=== PATIENT | male | born 1960 | race African-American/Black ===

== ENCOUNTER 2021-07-21 13:57 | Inpatient (IN) | payer OTHER ==
[2021-07-21] MEDS ORDERED: MAG HYDROX/AL HYDROX/SIMETH 30 ML UNIT-DOSE CUP PO PRN (17:51)
[2021-07-21] MEDS ORDERED: MENTHOL/PHENOL 1 EACH UD MM PRN (17:51)
[2021-07-21] MEDS ORDERED: NICOTINE POLACRILEX 2 MG GUM BUC PRN (17:51)
[2021-07-21] MEDS ORDERED: BISMUTH SUBSALICYLATE 524 MG/30 ML PO PRN (17:51)
[2021-07-21] MEDS ORDERED: ONDANSETRON *ODT* 4 MG TABLET SL PRN (17:51)
[2021-07-21] MEDS ORDERED: MAGNESIUM HYDROX 2400MG/30ML ORAL SUSPENSION 30 ML CUP PO PRN (17:51)
[2021-07-21] MEDS ORDERED: MAGNESIUM CITRATE 300 ML BOTTLE PO PRN (17:51)
[2021-07-21] MEDS ORDERED: IBUPROFEN 400 MG TABLET (FP) PO PRN (17:51)
[2021-07-21] MEDS ORDERED: ACETAMINOPHEN 325 MG TABLET (FP) PO PRN ×2 (17:51)
[2021-07-21] MEDS ORDERED: diazePAM 5 MG TABLET PO PRN (17:52)
[2021-07-21 19:35] VITALS: BMI 25.7
[2021-07-22] MEDS: BICTEGRAV/EMTRICIT/TENOFOV (BIKTARVY) 50-200-25 MG TABLET PO SCH ×3 (00:10→22:44)
[2021-07-22] MEDS: THIAMINE HCL 100 MG TABLET (FP) PO SCH ×2 (00:10→22:44)
[2021-07-22] MEDS: MELATONIN 5 MG TABLETS PO SCH ×2 (00:10→22:44)
[2021-07-22] MEDS: diazePAM 5 MG TABLET PO SCH ×5 (00:11→22:47)
[2021-07-22] MEDS: GABAPENTIN 300 MG CAPSULE PO SCH ×3 (05:27→22:44)
[2021-07-22] MEDS: PRENATAL VITAMINS W/ FOLIC ACID TABLET (FP) PO SCH (10:27)
[2021-07-22 11:45] LABS: HEMATOCRIT 38.8 % (35.4-49); HEMOGLOBIN 12.5 GM/dL (11.7-16.9); MCH 26.7 pg (25.7-33.7); MCHC 32.3 g/dl (32.0-35.9); MEAN CELL VOLUME 82.8 fl (80-96); MEAN PLT VOLUME 9.5 fl (7.5-11.1); PLATELET COUNT 236 10^3/uL (134-434); RBC 4.69 M/mm3 (4.00-5.60); RDW 13.8 % (11.9-15.9); WHITE BLOOD COUNT 7.5 K/mm3 (4.0-10.0)
[2021-07-22 12:07] LABS: ALBUMIN 3.2 g/dl (3.4-5.0); BLOOD UREA NITROGEN 15.9 mg/dL (7-18); CALCIUM 9.2 mg/dL (8.5-10.1)
[2021-07-22 12:10] LABS: CREATININE 0.9 mg/dL (0.55-1.3)
[2021-07-22 12:13] LABS: TOT PROT 6.8 g/dl (6.4-8.2)
[2021-07-22 12:14] LABS: BILIRUBIN,TOTAL 0.3 mg/dL (0.2-1)
[2021-07-22] MEDS: guaiFENesin 200 MG/10 ML 10 ML UNIT-DOSE CUPS PO PRN ×2 (13:06→19:25)
[2021-07-22] MEDS: hydrOXYzine PAMOATE 25 MG CAPSULE (FP) PO PRN ×2 (17:24→22:44)
[2021-07-22] MEDS: METHOCARBAMOL 500 MG TABLET PO PRN (22:44)
[2021-07-23] MEDS: GABAPENTIN 300 MG CAPSULE PO SCH ×3 (05:38→22:33)
[2021-07-23] MEDS: hydrOXYzine PAMOATE 25 MG CAPSULE (FP) PO PRN (05:38)
[2021-07-23] MEDS: diazePAM 5 MG TABLET PO SCH ×2 (05:39→18:05)
[2021-07-23] MEDS: METHOCARBAMOL 500 MG TABLET PO PRN (10:17)
[2021-07-23] MEDS: PRENATAL VITAMINS W/ FOLIC ACID TABLET (FP) PO SCH (10:17)
[2021-07-23] MEDS: BICTEGRAV/EMTRICIT/TENOFOV (BIKTARVY) 50-200-25 MG TABLET PO SCH (10:19)
[2021-07-23] MEDS: guaiFENesin 200 MG/10 ML 10 ML UNIT-DOSE CUPS PO PRN (18:07)
[2021-07-23] MEDS: THIAMINE HCL 100 MG TABLET (FP) PO SCH (22:33)
[2021-07-23] MEDS: MELATONIN 5 MG TABLETS PO SCH (22:34)
[2021-07-23] MEDS ORDERED: BICTEGRAV/EMTRICIT/TENOFOV (BIKTARVY) 50-200-25 MG TABLET PO ONE (22:45)
[2021-07-24] MEDS: GABAPENTIN 300 MG CAPSULE PO SCH (05:30)
[2021-07-24] MEDS ORDERED: diazePAM 5 MG TABLET PO ONE (06:00)
[2021-07-24 09:14] VITALS: BP 133/80; PULSE 99; TEMP 97.8
== END 2021-07-24 10:01 | disposition home or self-care (01) | DRG 774 ==
LOC: YASAS 13:57 → Y6N 23:22
PROVIDERS: ADMIT Allergy & Immunology; ATTEND Allergy & Immunology
PROC: HZ2ZZZZ Detoxification Services for Substance Abuse Treatment (ICD-10-PCS; principal; 2021-07-21)
DX: F10.230 Alcohol dependence with withdrawal, uncomplicated (principal); F14.20 Cocaine dependence, uncomplicated; F12.20 Cannabis dependence, uncomplicated; F17.213 Nicotine dependence, cigarettes, with withdrawal; Z21 Asymptomatic human immunodeficiency virus [HIV] infection status; G62.9 Polyneuropathy, unspecified; Z86.11 Personal history of tuberculosis; Z86.19 Personal history of other infectious and parasitic diseases; Z88.0 Allergy status to penicillin
CPT/HCPCS: 36415; 71046-TC-FY; 80053; 85027; 86780; C9803; U0003; U0005

== ENCOUNTER 2021-07-26 21:02 | Inpatient (IN) | payer OTHER ==
[2021-07-26 22:49] VITALS: BMI 24.0
[2021-07-26] MEDS ORDERED: guaiFENesin 200 MG/10 ML 10 ML UNIT-DOSE CUPS PO PRN (22:58)
[2021-07-26] MEDS ORDERED: MENTHOL/PHENOL 1 EACH UD MM PRN (22:58)
[2021-07-26] MEDS ORDERED: MAGNESIUM CITRATE 300 ML BOTTLE PO PRN (22:58)
[2021-07-26] MEDS ORDERED: NICOTINE 10 MG CARTRIDGE (INHALER) IH PRN (22:58)
[2021-07-26] MEDS ORDERED: LOPERAMIDE HCL 2 MG CAPSULE PO PRN (22:58)
[2021-07-26] MEDS ORDERED: MAGNESIUM HYDROX 2400MG/30ML ORAL SUSPENSION 30 ML CUP PO PRN (22:58)
[2021-07-26] MEDS ORDERED: P-EPHED 60MG/TRIPROLIDI 2.5MG TABLET PO PRN (22:58)
[2021-07-26] MEDS ORDERED: MAG HYDROX/AL HYDROX/SIMETH 30 ML UNIT-DOSE CUP PO PRN (22:58)
[2021-07-27] MEDS: GABAPENTIN 300 MG CAPSULE PO SCH ×4 (02:15→21:22)
[2021-07-27] MEDS: MELATONIN 5 MG TABLETS PO SCH ×2 (02:19→21:22)
[2021-07-27] MEDS ORDERED: BICTEGRAV/EMTRICIT/TENOFOV (BIKTARVY) 50-200-25 MG TABLET PO SCH (10:00)
[2021-07-27] MEDS: PRENATAL VITAMINS W/ FOLIC ACID TABLET (FP) PO SCH (10:10)
[2021-07-27] MEDS: NICOTINE 7 MG/24 HOURS TOPICAL PATCH TD SCH (10:11)
[2021-07-27] MEDS: ACETAMINOPHEN 325 MG TABLET (FP) PO PRN (13:34)
[2021-07-27] MEDS: THIAMINE HCL 100 MG TABLET (FP) PO SCH (21:22)
[2021-07-28] MEDS: GABAPENTIN 300 MG CAPSULE PO SCH ×3 (06:28→21:22)
[2021-07-28] MEDS: ACETAMINOPHEN 325 MG TABLET (FP) PO PRN ×3 (06:29→21:22)
[2021-07-28] MEDS: NYSTATIN POWDER 100,000 UNITS/GM - 15 GM TOPICAL POWDER TP SCH ×2 (10:07→21:23)
[2021-07-28] MEDS: NYSTATIN 100000 UNIT/GM TOPICAL OINTMENT 15 GM TUBE TP SCH ×2 (10:07→21:23)
[2021-07-28] MEDS: PRENATAL VITAMINS W/ FOLIC ACID TABLET (FP) PO SCH (10:07)
[2021-07-28] MEDS: NICOTINE 7 MG/24 HOURS TOPICAL PATCH TD SCH (10:08)
[2021-07-28] MEDS: BICTEGRAV/EMTRICIT/TENOFOV (BIKTARVY) 50-200-25 MG TABLET PO SCH (19:51)
[2021-07-28] MEDS: MELATONIN 5 MG TABLETS PO SCH (21:21)
[2021-07-28] MEDS: THIAMINE HCL 100 MG TABLET (FP) PO SCH (21:21)
[2021-07-29] MEDS: GABAPENTIN 300 MG CAPSULE PO SCH ×3 (06:44→21:33)
[2021-07-29] MEDS: NYSTATIN POWDER 100,000 UNITS/GM - 15 GM TOPICAL POWDER TP SCH ×2 (09:57→21:34)
[2021-07-29] MEDS: NICOTINE 7 MG/24 HOURS TOPICAL PATCH TD SCH (09:57)
[2021-07-29] MEDS: NYSTATIN 100000 UNIT/GM TOPICAL OINTMENT 15 GM TUBE TP SCH ×2 (09:57→21:34)
[2021-07-29] MEDS: PRENATAL VITAMINS W/ FOLIC ACID TABLET (FP) PO SCH (09:57)
[2021-07-29] MEDS: BICTEGRAV/EMTRICIT/TENOFOV (BIKTARVY) 50-200-25 MG TABLET PO SCH (20:10)
[2021-07-29] MEDS: MELATONIN 5 MG TABLETS PO SCH (21:34)
[2021-07-29] MEDS: THIAMINE HCL 100 MG TABLET (FP) PO SCH (21:34)
[2021-07-30] MEDS: GABAPENTIN 300 MG CAPSULE PO SCH ×3 (06:21→21:17)
[2021-07-30 10:07] LABS: SARS-CoV-2 NAA Not Detected (Not Detected)
[2021-07-30] MEDS: NYSTATIN 100000 UNIT/GM TOPICAL OINTMENT 15 GM TUBE TP SCH ×2 (11:02→21:17)
[2021-07-30] MEDS: NYSTATIN POWDER 100,000 UNITS/GM - 15 GM TOPICAL POWDER TP SCH ×2 (11:02→21:18)
[2021-07-30] MEDS: NICOTINE 7 MG/24 HOURS TOPICAL PATCH TD SCH (11:02)
[2021-07-30] MEDS: PRENATAL VITAMINS W/ FOLIC ACID TABLET (FP) PO SCH (11:02)
[2021-07-30] MEDS: ACETAMINOPHEN 325 MG TABLET (FP) PO PRN (14:38)
[2021-07-30] MEDS: BICTEGRAV/EMTRICIT/TENOFOV (BIKTARVY) 50-200-25 MG TABLET PO SCH (19:43)
[2021-07-30] MEDS: THIAMINE HCL 100 MG TABLET (FP) PO SCH (21:17)
[2021-07-30] MEDS: MELATONIN 5 MG TABLETS PO SCH (21:17)
[2021-07-31] MEDS: GABAPENTIN 300 MG CAPSULE PO SCH ×3 (06:30→21:57)
[2021-07-31] MEDS: NICOTINE 7 MG/24 HOURS TOPICAL PATCH TD SCH (11:16)
[2021-07-31] MEDS: NYSTATIN POWDER 100,000 UNITS/GM - 15 GM TOPICAL POWDER TP SCH ×2 (11:16→21:58)
[2021-07-31] MEDS: PRENATAL VITAMINS W/ FOLIC ACID TABLET (FP) PO SCH (11:16)
[2021-07-31] MEDS: NYSTATIN 100000 UNIT/GM TOPICAL OINTMENT 15 GM TUBE TP SCH ×2 (11:16→21:58)
[2021-07-31] MEDS: MELATONIN 5 MG TABLETS PO SCH (21:57)
[2021-07-31] MEDS: THIAMINE HCL 100 MG TABLET (FP) PO SCH (21:57)
[2021-07-31] MEDS: BICTEGRAV/EMTRICIT/TENOFOV (BIKTARVY) 50-200-25 MG TABLET PO SCH (21:58)
[2021-08-01] MEDS: GABAPENTIN 300 MG CAPSULE PO SCH ×3 (06:13→21:24)
[2021-08-01] MEDS: NYSTATIN POWDER 100,000 UNITS/GM - 15 GM TOPICAL POWDER TP SCH ×2 (09:55→21:24)
[2021-08-01] MEDS: PRENATAL VITAMINS W/ FOLIC ACID TABLET (FP) PO SCH (09:55)
[2021-08-01] MEDS: NYSTATIN 100000 UNIT/GM TOPICAL OINTMENT 15 GM TUBE TP SCH ×2 (09:55→21:24)
[2021-08-01] MEDS: NICOTINE 7 MG/24 HOURS TOPICAL PATCH TD SCH (09:55)
[2021-08-01] MEDS: BICTEGRAV/EMTRICIT/TENOFOV (BIKTARVY) 50-200-25 MG TABLET PO SCH (19:58)
[2021-08-01] MEDS: THIAMINE HCL 100 MG TABLET (FP) PO SCH (21:24)
[2021-08-01] MEDS: MELATONIN 5 MG TABLETS PO SCH (21:24)
[2021-08-02] MEDS: GABAPENTIN 300 MG CAPSULE PO SCH (06:32)
[2021-08-02] MEDS: NYSTATIN 100000 UNIT/GM TOPICAL OINTMENT 15 GM TUBE TP SCH ×2 (10:07→21:29)
[2021-08-02] MEDS: NYSTATIN POWDER 100,000 UNITS/GM - 15 GM TOPICAL POWDER TP SCH ×2 (10:07→21:29)
[2021-08-02] MEDS: NICOTINE 7 MG/24 HOURS TOPICAL PATCH TD SCH (10:07)
[2021-08-02] MEDS: PRENATAL VITAMINS W/ FOLIC ACID TABLET (FP) PO SCH (10:07)
[2021-08-02] MEDS: COLLOIDAL OATMEAL 1 BAR EACH TP PRN (11:51)
[2021-08-02] MEDS: GABAPENTIN 400 MG CAPSULE PO SCH ×2 (14:57→21:15)
[2021-08-02] MEDS: BICTEGRAV/EMTRICIT/TENOFOV (BIKTARVY) 50-200-25 MG TABLET PO SCH (19:42)
[2021-08-02] MEDS: THIAMINE HCL 100 MG TABLET (FP) PO SCH (21:15)
[2021-08-02] MEDS: MELATONIN 5 MG TABLETS PO SCH (21:15)
[2021-08-03] MEDS: GABAPENTIN 400 MG CAPSULE PO SCH ×3 (07:15→21:33)
[2021-08-03] MEDS: NICOTINE 7 MG/24 HOURS TOPICAL PATCH TD SCH (10:05)
[2021-08-03] MEDS: PRENATAL VITAMINS W/ FOLIC ACID TABLET (FP) PO SCH (10:05)
[2021-08-03] MEDS: NYSTATIN 100000 UNIT/GM TOPICAL OINTMENT 15 GM TUBE TP SCH ×2 (10:05→21:33)
[2021-08-03] MEDS: NYSTATIN POWDER 100,000 UNITS/GM - 15 GM TOPICAL POWDER TP SCH ×2 (10:05→21:33)
[2021-08-03] MEDS: hydrOXYzine PAMOATE 25 MG CAPSULE (FP) PO PRN (10:06)
[2021-08-03] MEDS: BICTEGRAV/EMTRICIT/TENOFOV (BIKTARVY) 50-200-25 MG TABLET PO SCH (20:09)
[2021-08-03] MEDS: MELATONIN 5 MG TABLETS PO SCH (21:33)
[2021-08-03] MEDS: THIAMINE HCL 100 MG TABLET (FP) PO SCH (21:33)
[2021-08-04] MEDS: GABAPENTIN 400 MG CAPSULE PO SCH ×3 (06:23→21:35)
[2021-08-04] MEDS: NICOTINE 7 MG/24 HOURS TOPICAL PATCH TD SCH (10:11)
[2021-08-04] MEDS: PRENATAL VITAMINS W/ FOLIC ACID TABLET (FP) PO SCH (10:11)
[2021-08-04] MEDS: NYSTATIN 100000 UNIT/GM TOPICAL OINTMENT 15 GM TUBE TP SCH ×2 (10:11→21:35)
[2021-08-04] MEDS: NYSTATIN POWDER 100,000 UNITS/GM - 15 GM TOPICAL POWDER TP SCH ×2 (10:11→21:36)
[2021-08-04] MEDS: COLLOIDAL OATMEAL 1 BAR EACH TP PRN (10:13)
[2021-08-04] MEDS: BICTEGRAV/EMTRICIT/TENOFOV (BIKTARVY) 50-200-25 MG TABLET PO SCH (20:21)
[2021-08-04] MEDS: hydrOXYzine PAMOATE 25 MG CAPSULE (FP) PO PRN (21:35)
[2021-08-04] MEDS: THIAMINE HCL 100 MG TABLET (FP) PO SCH (21:35)
[2021-08-04] MEDS: MELATONIN 5 MG TABLETS PO SCH (21:36)
[2021-08-05] MEDS: GABAPENTIN 400 MG CAPSULE PO SCH ×3 (06:17→21:38)
[2021-08-05] MEDS: PRENATAL VITAMINS W/ FOLIC ACID TABLET (FP) PO SCH (10:11)
[2021-08-05] MEDS: ACETAMINOPHEN 325 MG TABLET (FP) PO PRN (10:11)
[2021-08-05] MEDS: NYSTATIN POWDER 100,000 UNITS/GM - 15 GM TOPICAL POWDER TP SCH ×2 (10:13→21:39)
[2021-08-05] MEDS: NICOTINE 7 MG/24 HOURS TOPICAL PATCH TD SCH (10:13)
[2021-08-05] MEDS: NYSTATIN 100000 UNIT/GM TOPICAL OINTMENT 15 GM TUBE TP SCH ×2 (11:08→21:39)
[2021-08-05] MEDS: IBUPROFEN 400 MG TABLET (FP) PO PRN (18:40)
[2021-08-05] MEDS: BICTEGRAV/EMTRICIT/TENOFOV (BIKTARVY) 50-200-25 MG TABLET PO SCH (20:02)
[2021-08-05] MEDS: MELATONIN 5 MG TABLETS PO SCH (21:36)
[2021-08-05] MEDS: THIAMINE HCL 100 MG TABLET (FP) PO SCH (21:38)
[2021-08-06] MEDS: GABAPENTIN 400 MG CAPSULE PO SCH ×3 (06:17→21:48)
[2021-08-06] MEDS: NICOTINE 7 MG/24 HOURS TOPICAL PATCH TD SCH (09:48)
[2021-08-06] MEDS: PRENATAL VITAMINS W/ FOLIC ACID TABLET (FP) PO SCH (09:48)
[2021-08-06] MEDS: IBUPROFEN 400 MG TABLET (FP) PO PRN (09:51)
[2021-08-06] MEDS: NYSTATIN 100000 UNIT/GM TOPICAL OINTMENT 15 GM TUBE TP SCH ×2 (13:36→21:49)
[2021-08-06] MEDS: NYSTATIN POWDER 100,000 UNITS/GM - 15 GM TOPICAL POWDER TP SCH ×2 (13:37→21:49)
[2021-08-06] MEDS: BICTEGRAV/EMTRICIT/TENOFOV (BIKTARVY) 50-200-25 MG TABLET PO SCH (20:14)
[2021-08-06] MEDS: THIAMINE HCL 100 MG TABLET (FP) PO SCH (21:48)
[2021-08-06] MEDS: MELATONIN 5 MG TABLETS PO SCH (21:48)
[2021-08-07] MEDS: GABAPENTIN 400 MG CAPSULE PO SCH ×3 (06:07→21:26)
[2021-08-07] MEDS: PRENATAL VITAMINS W/ FOLIC ACID TABLET (FP) PO SCH (10:03)
[2021-08-07] MEDS: NYSTATIN POWDER 100,000 UNITS/GM - 15 GM TOPICAL POWDER TP SCH ×2 (10:04→21:27)
[2021-08-07] MEDS: NICOTINE 7 MG/24 HOURS TOPICAL PATCH TD SCH (10:04)
[2021-08-07] MEDS: NYSTATIN 100000 UNIT/GM TOPICAL OINTMENT 15 GM TUBE TP SCH ×2 (10:04→21:27)
[2021-08-07] MEDS: IBUPROFEN 400 MG TABLET (FP) PO PRN (10:05)
[2021-08-07] MEDS ORDERED: MASKS NR ONE (17:31)
[2021-08-07] MEDS: BICTEGRAV/EMTRICIT/TENOFOV (BIKTARVY) 50-200-25 MG TABLET PO SCH (20:36)
[2021-08-07] MEDS: MELATONIN 5 MG TABLETS PO SCH (21:26)
[2021-08-07] MEDS: THIAMINE HCL 100 MG TABLET (FP) PO SCH (21:26)
[2021-08-08] MEDS: GABAPENTIN 400 MG CAPSULE PO SCH ×3 (06:04→21:35)
[2021-08-08] MEDS: PRENATAL VITAMINS W/ FOLIC ACID TABLET (FP) PO SCH (10:08)
[2021-08-08] MEDS: NICOTINE 7 MG/24 HOURS TOPICAL PATCH TD SCH (10:08)
[2021-08-08] MEDS: NYSTATIN 100000 UNIT/GM TOPICAL OINTMENT 15 GM TUBE TP SCH ×2 (10:09→21:35)
[2021-08-08] MEDS: NYSTATIN POWDER 100,000 UNITS/GM - 15 GM TOPICAL POWDER TP SCH ×2 (10:09→21:35)
[2021-08-08] MEDS: IBUPROFEN 400 MG TABLET (FP) PO PRN (17:48)
[2021-08-08] MEDS: BACITRACIN 0.9 GM PACKET TP SCH (17:50)
[2021-08-08] MEDS: BICTEGRAV/EMTRICIT/TENOFOV (BIKTARVY) 50-200-25 MG TABLET PO SCH (20:05)
[2021-08-08] MEDS: METHOCARBAMOL 500 MG TABLET PO PRN (21:34)
[2021-08-08] MEDS: MELATONIN 5 MG TABLETS PO SCH (21:35)
[2021-08-08] MEDS: hydrOXYzine PAMOATE 25 MG CAPSULE (FP) PO PRN (21:35)
[2021-08-08] MEDS: THIAMINE HCL 100 MG TABLET (FP) PO SCH (21:35)
[2021-08-09] MEDS: GABAPENTIN 400 MG CAPSULE PO SCH ×3 (06:22→21:40)
[2021-08-09] MEDS: PRENATAL VITAMINS W/ FOLIC ACID TABLET (FP) PO SCH (09:54)
[2021-08-09] MEDS: NYSTATIN POWDER 100,000 UNITS/GM - 15 GM TOPICAL POWDER TP SCH ×2 (09:55→22:03)
[2021-08-09] MEDS: NICOTINE 7 MG/24 HOURS TOPICAL PATCH TD SCH (09:55)
[2021-08-09] MEDS: METHOCARBAMOL 500 MG TABLET PO PRN ×2 (09:56→21:42)
[2021-08-09] MEDS: BACITRACIN 0.9 GM PACKET TP SCH (09:56)
[2021-08-09] MEDS: NYSTATIN 100000 UNIT/GM TOPICAL OINTMENT 15 GM TUBE TP SCH ×2 (10:35→22:03)
[2021-08-09] MEDS: BICTEGRAV/EMTRICIT/TENOFOV (BIKTARVY) 50-200-25 MG TABLET PO SCH (20:31)
[2021-08-09] MEDS: MELATONIN 5 MG TABLETS PO SCH (21:40)
[2021-08-09] MEDS: THIAMINE HCL 100 MG TABLET (FP) PO SCH (21:40)
[2021-08-09] MEDS: IBUPROFEN 400 MG TABLET (FP) PO PRN (21:41)
[2021-08-10] MEDS: GABAPENTIN 400 MG CAPSULE PO SCH ×3 (06:12→21:36)
[2021-08-10] MEDS: NYSTATIN 100000 UNIT/GM TOPICAL OINTMENT 15 GM TUBE TP SCH ×2 (09:45→21:48)
[2021-08-10] MEDS: NICOTINE 7 MG/24 HOURS TOPICAL PATCH TD SCH (09:46)
[2021-08-10] MEDS: NYSTATIN POWDER 100,000 UNITS/GM - 15 GM TOPICAL POWDER TP SCH ×2 (09:46→21:48)
[2021-08-10] MEDS: BACITRACIN 0.9 GM PACKET TP SCH (09:47)
[2021-08-10] MEDS: PRENATAL VITAMINS W/ FOLIC ACID TABLET (FP) PO SCH (09:47)
[2021-08-10] MEDS: BICTEGRAV/EMTRICIT/TENOFOV (BIKTARVY) 50-200-25 MG TABLET PO SCH (20:11)
[2021-08-10] MEDS: IBUPROFEN 400 MG TABLET (FP) PO PRN (21:36)
[2021-08-10] MEDS: METHOCARBAMOL 500 MG TABLET PO PRN (21:36)
[2021-08-10] MEDS: THIAMINE HCL 100 MG TABLET (FP) PO SCH (21:36)
[2021-08-10] MEDS: MELATONIN 5 MG TABLETS PO SCH (21:36)
[2021-08-11] MEDS: GABAPENTIN 400 MG CAPSULE PO SCH ×3 (06:02→21:32)
[2021-08-11] MEDS: NYSTATIN 100000 UNIT/GM TOPICAL OINTMENT 15 GM TUBE TP SCH ×2 (10:09→21:35)
[2021-08-11] MEDS: PRENATAL VITAMINS W/ FOLIC ACID TABLET (FP) PO SCH (10:09)
[2021-08-11] MEDS: NICOTINE 7 MG/24 HOURS TOPICAL PATCH TD SCH (10:09)
[2021-08-11] MEDS: BACITRACIN 0.9 GM PACKET TP SCH (10:09)
[2021-08-11] MEDS: NYSTATIN POWDER 100,000 UNITS/GM - 15 GM TOPICAL POWDER TP SCH ×2 (10:10→21:36)
[2021-08-11] MEDS: IBUPROFEN 400 MG TABLET (FP) PO PRN ×2 (10:12→21:32)
[2021-08-11] MEDS: BICTEGRAV/EMTRICIT/TENOFOV (BIKTARVY) 50-200-25 MG TABLET PO SCH (20:17)
[2021-08-11] MEDS: THIAMINE HCL 100 MG TABLET (FP) PO SCH (21:32)
[2021-08-11] MEDS: METHOCARBAMOL 500 MG TABLET PO PRN (21:32)
[2021-08-11] MEDS: MELATONIN 5 MG TABLETS PO SCH (21:35)
[2021-08-12] MEDS: GABAPENTIN 400 MG CAPSULE PO SCH ×3 (06:05→21:42)
[2021-08-12] MEDS: IBUPROFEN 400 MG TABLET (FP) PO PRN (06:09)
[2021-08-12] MEDS: PRENATAL VITAMINS W/ FOLIC ACID TABLET (FP) PO SCH (09:43)
[2021-08-12] MEDS: NYSTATIN POWDER 100,000 UNITS/GM - 15 GM TOPICAL POWDER TP SCH ×2 (09:43→22:42)
[2021-08-12] MEDS: BACITRACIN 0.9 GM PACKET TP SCH (09:45)
[2021-08-12] MEDS: NYSTATIN 100000 UNIT/GM TOPICAL OINTMENT 15 GM TUBE TP SCH ×2 (09:45→22:42)
[2021-08-12] MEDS: NICOTINE 7 MG/24 HOURS TOPICAL PATCH TD SCH (09:45)
[2021-08-12] MEDS ORDERED: PT OWN MED DRAWER 7, Y5N ONE (14:37)
[2021-08-12] MEDS: BICTEGRAV/EMTRICIT/TENOFOV (BIKTARVY) 50-200-25 MG TABLET PO SCH (20:09)
[2021-08-12] MEDS: METHOCARBAMOL 500 MG TABLET PO PRN (21:42)
[2021-08-12] MEDS: THIAMINE HCL 100 MG TABLET (FP) PO SCH (21:42)
[2021-08-12] MEDS: MELATONIN 5 MG TABLETS PO SCH (21:43)
[2021-08-13] MEDS: GABAPENTIN 400 MG CAPSULE PO SCH ×3 (06:14→21:45)
[2021-08-13] MEDS: PRENATAL VITAMINS W/ FOLIC ACID TABLET (FP) PO SCH (10:05)
[2021-08-13] MEDS: NYSTATIN 100000 UNIT/GM TOPICAL OINTMENT 15 GM TUBE TP SCH ×2 (10:05→21:51)
[2021-08-13] MEDS: BACITRACIN 0.9 GM PACKET TP SCH (10:05)
[2021-08-13] MEDS: NYSTATIN POWDER 100,000 UNITS/GM - 15 GM TOPICAL POWDER TP SCH ×2 (10:06→21:51)
[2021-08-13] MEDS: NICOTINE 7 MG/24 HOURS TOPICAL PATCH TD SCH (10:06)
[2021-08-13] MEDS: BICTEGRAV/EMTRICIT/TENOFOV (BIKTARVY) 50-200-25 MG TABLET PO SCH (20:01)
[2021-08-13] MEDS: MELATONIN 5 MG TABLETS PO SCH (21:45)
[2021-08-13] MEDS: METHOCARBAMOL 500 MG TABLET PO PRN (21:45)
[2021-08-13] MEDS: THIAMINE HCL 100 MG TABLET (FP) PO SCH (21:45)
[2021-08-13] MEDS: IBUPROFEN 400 MG TABLET (FP) PO PRN (21:46)
[2021-08-14] MEDS: GABAPENTIN 400 MG CAPSULE PO SCH ×3 (06:33→21:11)
[2021-08-14] MEDS: PRENATAL VITAMINS W/ FOLIC ACID TABLET (FP) PO SCH (10:03)
[2021-08-14] MEDS: NICOTINE 7 MG/24 HOURS TOPICAL PATCH TD SCH (10:04)
[2021-08-14] MEDS: NYSTATIN POWDER 100,000 UNITS/GM - 15 GM TOPICAL POWDER TP SCH ×2 (10:04→21:13)
[2021-08-14] MEDS: NYSTATIN 100000 UNIT/GM TOPICAL OINTMENT 15 GM TUBE TP SCH ×2 (10:04→21:13)
[2021-08-14] MEDS: COLLOIDAL OATMEAL 1 BAR EACH TP PRN (10:05)
[2021-08-14] MEDS ORDERED: PT OWN MED DRAWER 7, Y5N ONE (20:13)
[2021-08-14] MEDS: BICTEGRAV/EMTRICIT/TENOFOV (BIKTARVY) 50-200-25 MG TABLET PO SCH (20:18)
[2021-08-14] MEDS: THIAMINE HCL 100 MG TABLET (FP) PO SCH (21:11)
[2021-08-14] MEDS: METHOCARBAMOL 500 MG TABLET PO PRN (21:11)
[2021-08-14] MEDS: IBUPROFEN 400 MG TABLET (FP) PO PRN (21:11)
[2021-08-14] MEDS: MELATONIN 5 MG TABLETS PO SCH (21:12)
[2021-08-15] MEDS: GABAPENTIN 400 MG CAPSULE PO SCH ×3 (06:49→21:50)
[2021-08-15] MEDS ORDERED: PT OWN MED DRAWER 7, Y5N ONE (08:59)
[2021-08-15] MEDS: NYSTATIN POWDER 100,000 UNITS/GM - 15 GM TOPICAL POWDER TP SCH ×2 (10:04→22:24)
[2021-08-15] MEDS: NICOTINE 7 MG/24 HOURS TOPICAL PATCH TD SCH (10:04)
[2021-08-15] MEDS: PRENATAL VITAMINS W/ FOLIC ACID TABLET (FP) PO SCH (10:04)
[2021-08-15] MEDS: NYSTATIN 100000 UNIT/GM TOPICAL OINTMENT 15 GM TUBE TP SCH ×2 (10:05→21:51)
[2021-08-15] MEDS: THIAMINE HCL 100 MG TABLET (FP) PO SCH (21:50)
[2021-08-15] MEDS: BICTEGRAV/EMTRICIT/TENOFOV (BIKTARVY) 50-200-25 MG TABLET PO SCH (21:50)
[2021-08-15] MEDS: MELATONIN 5 MG TABLETS PO SCH (21:50)
[2021-08-15] MEDS: METHOCARBAMOL 500 MG TABLET PO PRN (21:52)
[2021-08-16] MEDS: GABAPENTIN 400 MG CAPSULE PO SCH ×3 (06:38→21:03)
[2021-08-16] MEDS ORDERED: PT OWN MED DRAWER 7, Y5N ONE ×2 (09:23→19:51)
[2021-08-16] MEDS: PRENATAL VITAMINS W/ FOLIC ACID TABLET (FP) PO SCH (10:27)
[2021-08-16] MEDS: NICOTINE 7 MG/24 HOURS TOPICAL PATCH TD SCH (10:28)
[2021-08-16] MEDS: NYSTATIN 100000 UNIT/GM TOPICAL OINTMENT 15 GM TUBE TP SCH ×2 (10:28→21:03)
[2021-08-16] MEDS: NYSTATIN POWDER 100,000 UNITS/GM - 15 GM TOPICAL POWDER TP SCH ×2 (10:28→21:03)
[2021-08-16] MEDS: BICTEGRAV/EMTRICIT/TENOFOV (BIKTARVY) 50-200-25 MG TABLET PO SCH (20:01)
[2021-08-16] MEDS: MELATONIN 5 MG TABLETS PO SCH (21:03)
[2021-08-16] MEDS: THIAMINE HCL 100 MG TABLET (FP) PO SCH (21:03)
[2021-08-16] MEDS: IBUPROFEN 400 MG TABLET (FP) PO PRN (21:05)
[2021-08-16] MEDS: METHOCARBAMOL 500 MG TABLET PO PRN (21:06)
[2021-08-17] MEDS: GABAPENTIN 400 MG CAPSULE PO SCH ×3 (06:44→21:00)
[2021-08-17] MEDS: NYSTATIN 100000 UNIT/GM TOPICAL OINTMENT 15 GM TUBE TP SCH ×2 (09:54→21:04)
[2021-08-17] MEDS: NYSTATIN POWDER 100,000 UNITS/GM - 15 GM TOPICAL POWDER TP SCH ×2 (09:54→21:04)
[2021-08-17] MEDS: NICOTINE 7 MG/24 HOURS TOPICAL PATCH TD SCH (09:54)
[2021-08-17] MEDS: PRENATAL VITAMINS W/ FOLIC ACID TABLET (FP) PO SCH (09:54)
[2021-08-17] MEDS: IBUPROFEN 400 MG TABLET (FP) PO PRN ×2 (09:55→21:02)
[2021-08-17] MEDS: BICTEGRAV/EMTRICIT/TENOFOV (BIKTARVY) 50-200-25 MG TABLET PO SCH (20:18)
[2021-08-17] MEDS ORDERED: PT OWN MED DRAWER 7, Y5N ONE ×2 (20:45→21:43)
[2021-08-17] MEDS: MELATONIN 5 MG TABLETS PO SCH (21:00)
[2021-08-17] MEDS: THIAMINE HCL 100 MG TABLET (FP) PO SCH (21:00)
[2021-08-17] MEDS: METHOCARBAMOL 500 MG TABLET PO PRN (21:02)
[2021-08-18] MEDS: GABAPENTIN 400 MG CAPSULE PO SCH ×3 (06:15→21:23)
[2021-08-18] MEDS ORDERED: PT OWN MED DRAWER 7, Y5N ONE ×2 (08:55→14:52)
[2021-08-18] MEDS: MINERAL OIL/PETROLAT/WATER TOPICAL CREAM 113 GM JAR TP PRN (10:19)
[2021-08-18] MEDS: NICOTINE 7 MG/24 HOURS TOPICAL PATCH TD SCH (10:20)
[2021-08-18] MEDS: NYSTATIN POWDER 100,000 UNITS/GM - 15 GM TOPICAL POWDER TP SCH ×2 (10:20→21:24)
[2021-08-18] MEDS: PRENATAL VITAMINS W/ FOLIC ACID TABLET (FP) PO SCH (10:20)
[2021-08-18] MEDS: NYSTATIN 100000 UNIT/GM TOPICAL OINTMENT 15 GM TUBE TP SCH ×2 (10:21→21:24)
[2021-08-18] MEDS: BICTEGRAV/EMTRICIT/TENOFOV (BIKTARVY) 50-200-25 MG TABLET PO SCH (20:05)
[2021-08-18] MEDS: MELATONIN 5 MG TABLETS PO SCH (21:23)
[2021-08-18] MEDS: THIAMINE HCL 100 MG TABLET (FP) PO SCH (21:23)
[2021-08-19] MEDS: GABAPENTIN 400 MG CAPSULE PO SCH ×3 (06:35→21:14)
[2021-08-19] MEDS ORDERED: PT OWN MED DRAWER 7, Y5N ONE ×2 (09:01→14:51)
[2021-08-19] MEDS: PRENATAL VITAMINS W/ FOLIC ACID TABLET (FP) PO SCH (09:29)
[2021-08-19] MEDS: MINERAL OIL/PETROLAT/WATER TOPICAL CREAM 113 GM JAR TP PRN (09:29)
[2021-08-19] MEDS: COLLOIDAL OATMEAL 1 BAR EACH TP PRN (09:30)
[2021-08-19] MEDS: NYSTATIN POWDER 100,000 UNITS/GM - 15 GM TOPICAL POWDER TP SCH ×2 (09:31→21:43)
[2021-08-19] MEDS: NICOTINE 7 MG/24 HOURS TOPICAL PATCH TD SCH (09:31)
[2021-08-19] MEDS: NYSTATIN 100000 UNIT/GM TOPICAL OINTMENT 15 GM TUBE TP SCH ×2 (09:31→21:43)
[2021-08-19] MEDS: IBUPROFEN 400 MG TABLET (FP) PO PRN (15:41)
[2021-08-19] MEDS: BICTEGRAV/EMTRICIT/TENOFOV (BIKTARVY) 50-200-25 MG TABLET PO SCH (20:38)
[2021-08-19] MEDS: METHOCARBAMOL 500 MG TABLET PO PRN (21:14)
[2021-08-19] MEDS: MELATONIN 5 MG TABLETS PO SCH (21:14)
[2021-08-19] MEDS: THIAMINE HCL 100 MG TABLET (FP) PO SCH (23:05)
[2021-08-20] MEDS: GABAPENTIN 400 MG CAPSULE PO SCH ×3 (06:39→21:09)
[2021-08-20] MEDS: IBUPROFEN 400 MG TABLET (FP) PO PRN ×2 (09:01→21:10)
[2021-08-20] MEDS: PRENATAL VITAMINS W/ FOLIC ACID TABLET (FP) PO SCH (09:53)
[2021-08-20] MEDS: NYSTATIN 100000 UNIT/GM TOPICAL OINTMENT 15 GM TUBE TP SCH ×2 (09:53→21:12)
[2021-08-20] MEDS: NICOTINE 7 MG/24 HOURS TOPICAL PATCH TD SCH (09:53)
[2021-08-20] MEDS: NYSTATIN POWDER 100,000 UNITS/GM - 15 GM TOPICAL POWDER TP SCH ×2 (09:53→21:12)
[2021-08-20] MEDS ORDERED: PT OWN MED DRAWER 7, Y5N ONE ×2 (19:29→22:09)
[2021-08-20] MEDS: BICTEGRAV/EMTRICIT/TENOFOV (BIKTARVY) 50-200-25 MG TABLET PO SCH (20:05)
[2021-08-20] MEDS: THIAMINE HCL 100 MG TABLET (FP) PO SCH (21:09)
[2021-08-20] MEDS: METHOCARBAMOL 500 MG TABLET PO PRN (21:10)
[2021-08-20] MEDS: MELATONIN 5 MG TABLETS PO SCH (21:11)
[2021-08-21] MEDS: GABAPENTIN 400 MG CAPSULE PO SCH ×3 (06:38→21:26)
[2021-08-21] MEDS: NYSTATIN 100000 UNIT/GM TOPICAL OINTMENT 15 GM TUBE TP SCH ×2 (10:01→21:26)
[2021-08-21] MEDS: NYSTATIN POWDER 100,000 UNITS/GM - 15 GM TOPICAL POWDER TP SCH ×2 (10:01→21:27)
[2021-08-21] MEDS: NICOTINE 7 MG/24 HOURS TOPICAL PATCH TD SCH (10:01)
[2021-08-21] MEDS: PRENATAL VITAMINS W/ FOLIC ACID TABLET (FP) PO SCH (10:01)
[2021-08-21] MEDS ORDERED: PT OWN MED DRAWER 7, Y5N ONE (10:17)
[2021-08-21] MEDS: BICTEGRAV/EMTRICIT/TENOFOV (BIKTARVY) 50-200-25 MG TABLET PO SCH (20:10)
[2021-08-21] MEDS: IBUPROFEN 400 MG TABLET (FP) PO PRN (21:25)
[2021-08-21] MEDS: MELATONIN 5 MG TABLETS PO SCH (21:25)
[2021-08-21] MEDS: METHOCARBAMOL 500 MG TABLET PO PRN (21:25)
[2021-08-21] MEDS: THIAMINE HCL 100 MG TABLET (FP) PO SCH (21:26)
[2021-08-22] MEDS: GABAPENTIN 400 MG CAPSULE PO SCH (06:41)
[2021-08-22 06:50] VITALS: BP 138/81; PULSE 94; TEMP 97.1
[2021-08-22] MEDS: NICOTINE 7 MG/24 HOURS TOPICAL PATCH TD SCH (09:36)
[2021-08-22] MEDS: PRENATAL VITAMINS W/ FOLIC ACID TABLET (FP) PO SCH (09:36)
[2021-08-22] MEDS: NYSTATIN POWDER 100,000 UNITS/GM - 15 GM TOPICAL POWDER TP SCH (09:36)
[2021-08-22] MEDS: NYSTATIN 100000 UNIT/GM TOPICAL OINTMENT 15 GM TUBE TP SCH (09:36)
== END 2021-08-22 09:37 | disposition home or self-care (01) | DRG 772 ==
LOC: YASAS 21:02 → Y3W 23:34 → Y5N 08-03 08:39 → Y3E 08-14 11:25
PROVIDERS: ADMIT Allergy & Immunology; ATTEND Allergy & Immunology
PROC: HZ42ZZZ Group Counseling for Substance Abuse Treatment, Cognitive-Behavioral (ICD-10-PCS; principal; 2021-07-26)
DX: F10.20 Alcohol dependence, uncomplicated (principal); F14.20 Cocaine dependence, uncomplicated; F17.210 Nicotine dependence, cigarettes, uncomplicated; F19.280 Other psychoactive substance dependence with psychoactive substance-induced anxiety disorder; F19.24 Other psychoactive substance dependence with psychoactive substance-induced mood disorder; Z21 Asymptomatic human immunodeficiency virus [HIV] infection status; G63 Polyneuropathy in diseases classified elsewhere; Z62.810 Personal history of physical and sexual abuse in childhood; Z86.11 Personal history of tuberculosis; Z86.19 Personal history of other infectious and parasitic diseases; Z59.02 Unsheltered homelessness; Z88.0 Allergy status to penicillin
CPT/HCPCS: 93005; 93010; C9803; U0003; U0005

== ENCOUNTER 2021-11-14 14:49 | Inpatient (IN) | payer OTHER ==
[2021-11-14 19:12] VITALS: BMI 24.4
[2021-11-14] MEDS ORDERED: DICYCLOMINE HCL 10 MG CAPSULE PO PRN (21:05)
[2021-11-14] MEDS ORDERED: MENTHOL/PHENOL 1 EACH UD MM PRN (21:05)
[2021-11-14] MEDS ORDERED: IBUPROFEN 400 MG TABLET (FP) PO PRN (21:05)
[2021-11-14] MEDS ORDERED: guaiFENesin 200 MG/10 ML 10 ML UNIT-DOSE CUPS PO PRN (21:05)
[2021-11-14] MEDS ORDERED: BISMUTH SUBSALICYLATE 524 MG/30 ML PO PRN (21:05)
[2021-11-14] MEDS ORDERED: LOPERAMIDE HCL 2 MG CAPSULE PO PRN (21:05)
[2021-11-14] MEDS ORDERED: MAG HYDROX/AL HYDROX/SIMETH 30 ML UNIT-DOSE CUP PO PRN (21:05)
[2021-11-14] MEDS ORDERED: hydrOXYzine PAMOATE 25 MG CAPSULE (FP) PO PRN (21:05)
[2021-11-14] MEDS ORDERED: NICOTINE POLACRILEX 2 MG GUM BUC PRN (21:05)
[2021-11-14] MEDS ORDERED: NICOTINE 10 MG CARTRIDGE (INHALER) IH PRN (21:05)
[2021-11-14] MEDS ORDERED: MAGNESIUM HYDROX 2400MG/30ML ORAL SUSPENSION 30 ML CUP PO PRN (21:05)
[2021-11-14] MEDS ORDERED: MAGNESIUM CITRATE 300 ML BOTTLE PO PRN (21:05)
[2021-11-14] MEDS ORDERED: P-EPHED 60MG/TRIPROLIDI 2.5MG TABLET PO PRN (21:05)
[2021-11-14] MEDS ORDERED: METHOCARBAMOL 500 MG TABLET PO PRN (21:05)
[2021-11-14] MEDS ORDERED: ONDANSETRON *ODT* 4 MG TABLET SL PRN (21:05)
[2021-11-14] MEDS ORDERED: ACETAMINOPHEN 325 MG TABLET (FP) PO PRN ×2 (21:05)
[2021-11-14] MEDS ORDERED: MELATONIN 5 MG TABLETS PO SCH (22:00)
[2021-11-14] MEDS ORDERED: THIAMINE HCL 100 MG TABLET (FP) PO SCH (22:00)
[2021-11-15 09:44] VITALS: BP 143/76; PULSE 74; TEMP 98
[2021-11-15] MEDS ORDERED: NICOTINE 14 MG/24 HOURS TOPICAL PATCH TD SCH (10:00)
[2021-11-15] MEDS ORDERED: PRENATAL VITAMINS W/ FOLIC ACID TABLET (FP) PO SCH (10:00)
[2021-11-15 12:16] LABS: MCH 26.8 pg (25.7-33.7); MCHC 32.4 g/dl (32.0-35.9); MEAN CELL VOLUME 82.5 fl (80-96); PLATELET COUNT 223 10^3/uL (134-434); RBC 4.85 M/mm3 (4.00-5.60); RDW 14.4 % (11.9-15.9); WHITE BLOOD COUNT 7.5 K/mm3 (4.0-10.0)
[2021-11-15 13:11] LABS: CALCIUM 9.1 mg/dL (8.5-10.1)
[2021-11-15 13:12] LABS: ALBUMIN 3.2 g/dl (3.4-5.0); BLOOD UREA NITROGEN 23.4 mg/dL (7-18)
[2021-11-15 13:15] LABS: BILIRUBIN,TOTAL 0.3 mg/dL (0.2-1)
[2021-11-15 13:16] LABS: TOT PROT 6.4 g/dl (6.4-8.2)
== END 2021-11-15 15:39 | disposition home or self-care (01) | DRG 774 ==
LOC: YASAS 14:49 → Y6N 22:38
PROVIDERS: ADMIT Allergy & Immunology; ATTEND Allergy & Immunology
PROC: HZ2ZZZZ Detoxification Services for Substance Abuse Treatment (ICD-10-PCS; principal; 2021-11-14)
DX: F10.230 Alcohol dependence with withdrawal, uncomplicated (principal); F14.20 Cocaine dependence, uncomplicated; F12.20 Cannabis dependence, uncomplicated; F17.210 Nicotine dependence, cigarettes, uncomplicated; Z21 Asymptomatic human immunodeficiency virus [HIV] infection status; G62.89 Other specified polyneuropathies; Z86.11 Personal history of tuberculosis; Z86.19 Personal history of other infectious and parasitic diseases; Z88.0 Allergy status to penicillin
CPT/HCPCS: 36415; 80053; 85027; 86780; C9803; U0003; U0005